=== PATIENT | male | born 1995 | race Caucasian/White ===

== ENCOUNTER 2018-02-24 17:07 | Inpatient (IN) | payer OTHER ==
[2018-02-24 17:30] LABS: PLATELET COUNT 208 10^3/uL (150-400)
--- NOTE | 2018-02-24 17:31 | EDPHY ---
H & P Stated Complaint: M1 SI/HI Time Seen by Provider: 02/24/18 17:09 HPI/ROS: CHIEF COMPLAINT: Suicidal and homicidal ideation HISTORY OF PRESENT ILLNESS: 23-year-old male history of bipolar disorder, off of his medications since 2017, was at his psychiatrist today and was subsequently placed on M1 hold as he was endorsing suicidal ideation and homicidal ideation. Regarding his suicidal ideation his plan is to either lacerate his neck, hang himself or buy a gun and shoot himself. He does not currently own a gun.. Regarding his homicidal ideation, states that this is not directed any specific individual(s) however he has had thoughts of " shooting up a school" with no specific school in mind. Denies hallucination. No complaints of physical pain or discomfort. REVIEW OF SYSTEMS: 10 systems reviewed and negative with the exception of the elements mentioned in the history of present illness PAST MEDICAL & SURGICAL HISTORY: Bipolar disorder SOCIAL HISTORY: Denies acute alcohol or drug use PHYSICAL EXAM (Prior to examination, patient consented to physical exam, hands were washed and my usual and customary physical exam procedures followed) 1) GENERAL: Well-developed, well-nourished, alert and oriented. Rapid. 2) HEAD: Normocephalic, atraumatic 3) HEENT: Pupils equal, round, reactive to light bilaterally. Sclera anicteric. 4) NECK: Full range of motion, no meningeal signs. 5) LUNGS: Clear auscultation bilaterally, no wheezes, no rhonchi, no retractions. 6) HEART: Regular rate and rhythm, no murmur, no heave, no gallop. 7) ABDOMEN: No guarding, no rebound, no focal tenderness, negative McBurney's, negative Gee's, negative Rovsing's, negative peritoneal sign, 8) MUSCULOSKELETAL: Multiple subacute superficial abrasions left dorsal hand left forearm with no signs of infection or underlying pain. Neurovascular intact. Otherwise, Moving all extremities, no focal areas of tenderness, no obvious trauma. No peripheral edema or discoloration. 9) BACK: No CVA tenderness, no midline vertebral tenderness, no fluctuance, no step-off, no obvious trauma, no visual or palpable abnormality. 10) SKIN: No rash, no petechiae. 11) Psychiatric: Patient is oriented X 3, there is no agitation. DIFFERENTIAL DIAGNOSIS: In no particular order including but not limited to suicidal ideation, homicidal ideation, depression, shay - Medical/Surgical History Hx Asthma: No Hx Chronic Respiratory Disease: No Hx Diabetes: No Hx Cardiac Disease: No Hx Renal Disease: No Hx Cirrhosis: No Hx Alcoholism: No Hx HIV/AIDS: No Hx Splenectomy or Spleen Trauma: No Other PMH: Bipolar (off Rx since 02/03/19), aspergers - Social History Smoking Status: Never smoked Constitutional: Initial Vital Signs Temperature (C) 36.7 C 02/24/18 17:20 Heart Rate 110 H 02/24/18 17:20 Respiratory Rate 20 02/24/18 17:20 Blood Pressure 162/108 H 02/24/18 17:20 O2 Sat (%) 96 02/24/18 17:20 O2 Delivery Mode Room Air Allergies/Adverse Reactions: Sulfa (Sulfonamide Antibiotics) Allergy (Verified 05/15/13 22:26) Home Medications: Medication Instructions Recorded Benztropine Mesylate [Cogentin 1 mg PO 05/16/11 (RX)] LORazepam [Ativan 0.5 mg (RX)] 0.5 mg PO 05/16/11 [place] Carbonate [[place] 600 mg PO 05/16/11 Carbonate Tab 300 mg (RX)] PERPHENAZINE [Perphenazine 4mg] 4 mg PO 05/16/11 AZITHROMYCIN [Z-PACK] 250 mg PO DAILY #4 tab 05/15/13 Benzonatate [Tessalon Pearles] 100 mg PO TID PRN #30 cap 05/15/13 Medical Decision Making ED Course/Re-evaluation: 5:29 p.m.: Patient is on an M1 hold. He is actively endorsing suicidal and homicidal ideation. He is agreeable with diagnostic studies. Calm and cooperative at this time. Care of patient under supervision of secondary supervising physician Dr Harley with whom I discussed case. Midnight: Patient accepted for transfer, accepting physician Dr. Retana [address] EMTALA paperwork completed - Data Points Laboratory Results: Laboratory Results 02/24/18 17:21 02/24/18 17:21 02/24/18 02/24/18 02/24/18 17:21 17:21 17:21 WBC RBC Hgb Hct MCV MCH MCHC RDW Plt Count MPV Neut % (Auto) Lymph % (Auto) [place] % (Auto) Eos % (Auto) Baso % (Auto) Nucleat RBC Rel Count Absolute Neuts (auto) Absolute Lymphs (auto) Absolute Monos (auto) Absolute Eos (auto) Absolute Basos (auto) Absolute Nucleated RBC Immature Gran % Immature Gran # Sodium 139 mEq/L mEq/L (135-145) Potassium 4.1 mEq/L mEq/L (3.5-5.2) Chloride 104 mEq/L mEq/L (97-110) Carbon Dioxide 25 mEq/l mEq/l (22-31) Anion Gap 10 mEq/L mEq/L (6-14) BUN 16 mg/dL mg/dL (7-23) Creatinine 0.8 mg/dL mg/dL (0.7-1.3) Estimated GFR > 60 Glucose 120 mg/dL H mg/dL (70-100) Calcium 9.8 mg/dL mg/dL (8.5-10.4) Salicylates < 1.0 mg/dL L mg/dL (2.0-20.0) Urine Opiates Screen NEGATIVE (NEGATIVE) Acetaminophen < 10 mcg/mL L mcg/mL (10-30) Urine Barbiturates NEGATIVE (NEGATIVE) Ur Phencyclidine Scrn NEGATIVE (NEGATIVE) Ur Amphetamine Screen NEGATIVE (NEGATIVE) U Benzodiazepines Scrn NEGATIVE (NEGATIVE) [place] < 0.2 mEq/L L mEq/L (0.6-1.2) Urine Cocaine Screen NEGATIVE (NEGATIVE) U Marijuana (THC) Screen NEGATIVE (NEGATIVE) Ethyl Alcohol < 10 mg/dL mg/dL (0-10) 02/24/18 17:21 WBC 7.48 10^3/uL 10^3/uL (3.80-9.50) RBC 5.31 10^6/uL 10^6/uL (4.40-6.38) Hgb 17.3 g/dL g/dL (13.7-17.5) Hct 48.8 % % (40.0-51.0) MCV 91.9 fL fL (81.5-99.8) MCH 32.6 pg pg (27.9-34.1) MCHC 35.5 g/dL g/dL (32.4-36.7) RDW 12.2 % % (11.5-15.2) Plt Count 208 10^3/uL 10^3/uL (150-400) MPV 11.2 fL fL (8.7-11.7) Neut % (Auto) 62.4 % % (39.3-74.2) Lymph % (Auto) 30.3 % % (15.0-45.0) [place] % (Auto) 5.7 % % (4.5-13.0) Eos % (Auto) 0.9 % % (0.6-7.6) Baso % (Auto) 0.4 % % (0.3-1.7) Nucleat RBC Rel Count 0.0 % % (0.0-0.2) Absolute Neuts (auto) 4.66 10^3/uL 10^3/uL (1.70-6.50) Absolute Lymphs (auto) 2.27 10^3/uL 10^3/uL (1.00-3.00) Absolute Monos (auto) 0.43 10^3/uL 10^3/uL (0.30-0.80) Absolute Eos (auto) 0.07 10^3/uL 10^3/uL (0.03-0.40) Absolute Basos (auto) 0.03 10^3/uL 10^3/uL (0.02-0.10) Absolute Nucleated RBC 0.00 10^3/uL 10^3/uL (0-0.01) Immature Gran % 0.3 % % (0.0-1.1) Immature Gran # 0.02 10^3/uL 10^3/uL (0.00-0.10) Sodium Potassium Chloride Carbon Dioxide Anion Gap BUN Creatinine Estimated GFR Glucose Calcium Salicylates Urine Opiates Screen Acetaminophen Urine Barbiturates Ur Phencyclidine Scrn Ur Amphetamine Screen U Benzodiazepines Scrn [place] Urine Cocaine Screen U Marijuana (THC) Screen Ethyl Alcohol Medications Given: Perphenazine (Trilafon) 4 mg PO EDNOW ONE Stop: 02/25/18 22:01 Last Admin: 02/24/18 22:00 Dose: 4 mg Discontinued Medications Alprazolam (Xanax) 0.5 mg PO EDNOW ONE Stop: 02/25/18 00:00 Last Admin: 02/24/18 22:00 Dose: 0.5 mg Departure - Departure Disposition: [facility] IP Clinical Impression: Homicidal ideation, Suicidal ideation Referrals: NONE *PRIMARY CARE P,. [Primary Care Provider] - As per Instructions
--- NOTE | 2018-02-24 22:20 | ASMTTCLDSP ---
TLC Discharge Disposition Disposition: Answers: Admit Discharge Concerns/Recommendations: Notes: In consultation with [facility] ED physician, Mary Harley MD and on-call psychiatrist, Huong Retana MD, both concurred that pt appears to meet 27-65 criteria requiring psychiatric hospitalization as pt appears to be at risk of harm to self/ gravely disabled due to a mental illness condition. For inpatient Huong Retana MD admission, the following psychiatrist agreed to accept patient for admission to Behavioral [facility] ([facility]): Date Signed: 02/24/2018 10:19 PM Electronically Signed By:Brea Roldan
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
[2018-02-24] MEDS ORDERED: ALPRAZolam 0.25 MG TAB PO ONE (23:59)
[2018-02-25] MEDS ORDERED: ACETAMINOPHEN 325 MG TAB PO PRN (01:56)
[2018-02-25] MEDS ORDERED: LORazepam 0.5 MG TAB PO PRN (01:56)
[2018-02-25] MEDS ORDERED: NICOTINE POLACRILEX 2 MG GUM B PRN (01:56)
[2018-02-25] MEDS ORDERED: MAG HYDROX/AL HYDROX/SIMETH 30 ML UDCUP PO PRN (01:56)
[2018-02-25] MEDS ORDERED: MAGNESIUM HYDROXIDE 30 ML UDCUP PO PRN (01:56)
[2018-02-25] MEDS ORDERED: OLANZapine 5 MG TAB PO PRN (01:57)
[2018-02-25] MEDS ORDERED: PERPHENAZINE 2 MG TAB PO ONE ×2 (09:14→22:00)
[2018-02-25] MEDS ORDERED: LITHIUM CARBONATE ER 300 MG TAB PO ONE (09:20)
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
[2018-02-25] MEDS: PERPHENAZINE 2 MG TAB PO SCH (14:10)
--- NOTE | 2018-02-25 14:57 | BCON ---
DATE OF CONSULTATION: 02/25/2018 REFERRING PHYSICIAN: Huong Retana MD REASON FOR REFERRAL: Medical clearance for inpatient behavioral health stay. HISTORY OF PRESENT ILLNESS: This patient came to the emergency department today on an M1 hold after seeing his psychiatrist and expressing suicidal and homicidal ideation. He was evaluated by the mental health team and admitted for further psychiatric care. He currently is without any acute medical complaints. PAST MEDICAL HISTORY: 1. Autism spectrum disorder. 2. Bipolar disorder. 3. Pilonidal cyst. PAST SURGICAL HISTORY: He has had excision of the pilonidal cyst. MEDICATIONS: Prior to admission: 1. Perphenazine 4 mg p.o. in the morning, 4 mg p.o. at 1400, and 8 mg p.o. at bedtime. 2. [place] 900 mg p.o. daily. 3. Alprazolam 0.5 mg at bedtime and q.6 hours p.r.n. ALLERGIES: He is allergic to sulfa antibiotics. SOCIAL HISTORY: He is disabled due to mental illness. He is living with his parents. He is a nonsmoker, nondrinker. FAMILY HISTORY: Noncontributory. REVIEW OF SYSTEMS: He denies any symptoms of a recurrent pilonidal cyst. He is not in pain. His weight has been stable. He does not get regular exercise other than bowling once a week. He denies cough or dyspnea, chest pain or palpitations, nausea, vomiting, constipation, diarrhea, and otherwise a 10- point review of systems is negative. PHYSICAL EXAM: VITAL SIGNS: Blood pressure is 145/66, heart rate is 68, respiratory rate is 20, oxygen saturation is 92% on room air. Temperature is 36.3 degrees centigrade. His weight is 117.9 kg for a body mass index of 32.5. GENERAL: This is an obese man who appears his chronologic age, dressed in street clothes, cooperative and in no acute distress. HEENT: Extraocular movements are intact. Pupils are equal, round, reactive to light. Mucous membranes are moist. Dentition is in good condition. NECK: Supple. HEART: There is a regular rate and rhythm with no murmurs, rubs, or gallops. LUNGS: Clear to auscultation bilaterally. ABDOMEN: Benign. EXTREMITIES: There is no cyanosis, clubbing, or edema. NEUROLOGIC: He is alert and oriented x3. Cranial nerves 2-12 are grossly intact. There is no focal weakness. Sensation is intact to light touch and gait is within normal limits. LABORATORY STUDIES: CBC was entirely normal. Serum chemistry showed normal renal function and electrolytes. Glucose was elevated at 120 but this may not have been fasting. Hemoglobin A1c was normal at 4.9. Liver function tests were normal. Lipid panel showed elevated triglycerides at 278, elevated cholesterol of 225, elevated LDL cholesterol at 136 and a low HDL cholesterol at 33. TSH was normal at 1.39. Toxicology screen in the serum was negative for salicylates, acetaminophen or ethyl alcohol. [place] level was undetectable. Toxicology screen in the urine was negative for any substances of abuse. ASSESSMENT/RECOMMENDATIONS: 1. Mental health issues pending further evaluation and management per Psychiatry and the mental health team. 2. Obesity. Consider avoiding psychiatric medications which would cause further weight gain, but psychosocial stabilization takes priority at present. Encouraged regular exercise as all he does currently is go bowling once a week. Consider dietary consult. 3. Dyslipidemia. There is no reason to consider a statin at his age. He would benefit from exercise, which could raise his HDL. 4. Elevated blood pressure. He may be developing metabolic syndrome. If blood pressure remains elevated, would be appropriate to initiate an antihypertensive. Elevated blood pressure would also respond well to increased exercise. I see no medical contraindications to this patient's continued stay in the inpatient behavioral health unit or to any psychiatric medications or procedures. Thank you very much for including me in the care of this patient and please do not hesitate to contact me or the hospitalist service should there be need for further medical evaluation. /[id number]/MODL MTDD
--- NOTE | 2018-02-25 17:28 | PDMN ---
Medical Necessity Medical necessity: Pt meets inpt criteria per MD order and [facility] [place] [id number], Schizophrenia Spectrum Disorders, Adult: Inpatient Care, 6 days. 23 y/o admitted w/autism spectrum disorder and schizoaffective disorder, on M1 hold due to risk of harm to self and others, requires inpt psychiatric hospitalization b/c of current acute agitation, decompensation of underlying schizoaffective disorder due to medication nonadherence.
[2018-02-25] MEDS: ALPRAZolam 0.5 MG TAB PO SCH (20:46)
[2018-02-25] MEDS: PERPHENAZINE 8 MG TAB PO SCH (20:46)
[2018-02-25] MEDS ORDERED: ALPRAZolam 1 MG TAB PO SCH (21:00)
[2018-02-25] MEDS ORDERED: PERPHENAZINE 16 MG PO SCH (21:00)
--- NOTE | 2018-02-26 08:40 | SOAPPROG ---
SOAP Progress Note Assessment/Plan: Assessment: Autism Spectrum Disorder, Schizoaffective Disorder. Slight improvement noted. ( see subjective/objective note). Patient could benefit from continued inpatient hospitalization for crisis stabilization, safety, and medication evaluation. Patient could benefit from therapeutic lithium level prior to discharge. [place] level scheduled for 03/02/18. Plan: 1. Psychotropic medications: After reviewing options, risks, and benefits patient agrees to continue current medications. No medication changes at this time as more time is needed to determine ongoing tolerability and efficacy. Plan is to continue to observe patient for response and side effects from medications, and ongoing monitoring and evaluation. 2. Review with patient informed consent and recommendations for psychotropic medication treatment listed below 3. Labs: no additional labs at this time 4. Therapy: continue milieu and group therapy 5. Further investigation including gathering information from patients relatives and review of past case records to inform treatment plan. 6. Safety/Wellness plan and follow-up outpatient appointments to be established prior to discharge. Next steps are for patient to meet with managed care liaison to plan a safe discharge plan and establish outpatient services for ongoing treatment. 7. Confer with inpatient treatment team regarding treatment plan. 8. Psychosocial stressors addressed through career transition specialist. 9. Legal status: M1 10. Consider discharge next week if patient is in stable condition, safe, and has a safe discharge plan. PSYCHOTROPIC MEDICATION TREATMENT INFORMED CONSENT and RECOMMENDATIONS: Review nature of condition, diagnosis, and prognosis. Review nature and purpose of psychotropic medication treatment. Review type of psychotropic medications being ordered. Review risk and benefits of psychotropic medication treatment. Review probable length of time patient will need to take medications. Review risk and benefits of not undergoing psychotropic medication treatment. Review alternative treatments to psychotropic medications. Review psychotropic medications contraindications, drug-drug interactions, side effects, and importance of reporting any side effects to a psychiatric provider or nurse during inpatient hospitalization, and upon discharge to patients psychiatric outpatient provider, primary care provider, or other health day care home provider. Review importance of asking a nurse, psychiatric provider, or primary care provider any questions or problems concerning the psychotropic medications. Verify patient understands the information that has been provided, and understands, accepts, and agrees to psychotropic medications. Review patients safety plan and importance of patient to report to staff while hospitalized if patient is ever a danger to self/others, or unable to care for self, and upon discharge, the importance for patient to contact [facility] or [facility], or go to the nearest emergency room, if patient is ever a danger to self/others, or unable to care for self. Recommend that upon discharge patient establish medication management treatment with a psychiatric provider, establishes routine therapy appointments, and follow-up with primary care provider. Verify patient understands and agrees to these recommendations. 02/26/18 08:39 Subjective: Following up with patient for evaluation of psychosis, shay, and safety. Patient reports, "Doing okay." Patient expresses the following psychiatric symptoms none. Patient reports taking medications as prescribed, and describes response to medications as good. Patient does not report undesirable side effects from the medications, and agrees to continue current medications. Patient describes getting 8 hours of sleep. Patient denies SI/HI, and reports, "No, I am not having any of those thoughts since I have been here. The last time I had those thoughts was on Friday." Objective: Vital Signs Temp Pulse Resp BP Pulse Ox 36.9 C 75 14 108/52 L 95 02/26/18 06:00 02/26/18 06:00 02/26/18 06:00 02/26/18 06:00 02/26/18 06:00 NURSING REPORT: Consulted with nursing for update on patients progress in treatment. Nurses report patient is not engaged in treatment, is not attending groups, slept 8 hours, expresses the following psychiatric symptoms: severe anxiety, exhibits the following psychiatric symptoms: irritable, easily agitated , anxious; is eating all meals, is agreeable to medications and taking as prescribed with no report of side effects, with no s/s of EPS/akathisia, and denies SI/HI, denies A/V hallucinations, and denies delusions. MSE: The patient is a well-nourished male looking stated chronological age. Attire is appropriate and dress is casual. Grooming status is appropriate. Ambulation is independent. Gait is normal and coordinated. Posture is relaxed. Eye contact is appropriate and adequate. Motor activity is appropriate with purposeful, organized, coordinated movements; with no involuntary movements. Attitude is cooperative and friendly. Patient appears attentive and relates fairly well to this interviewer. Language production is spontaneous. R/R/V normal. Articulation is clear. Patient reports mood as okay with congruent and appropriate affect. Patients thought process is linear and logical with no signs of formal thought disorder. Patient does not report suicidal/homicidal thoughts, ideas, or plans. Patient denies auditory, visual hallucinations. Patient denies delusions. Patient does not appear to be attending to internal stimuli. Patients attention and concentration are fair. Patient is oriented to person, place, time. Patients insight and judgment poor. - Time Spent With Patient Time Spent With Patient: 15 minutes, met with patient individually. - Pending Discharge Pending Discharge Within 24 Hours: No Pending Discharge Within 48 Hours: No ICD10 Worksheet Patient Problems: Problems Problem Status Onset Homicidal ideation Acute Suicidal ideation Acute
[2018-02-26] MEDS ORDERED: PERPHENAZINE 8 MG TAB PO SCH (09:00)
[2018-02-26] MEDS: PERPHENAZINE 2 MG TAB PO SCH ×2 (09:16→15:34)
[2018-02-26] MEDS: LITHIUM CARBONATE ER 300 MG TAB PO SCH (09:16)
--- NOTE | 2018-02-26 14:12 | ASMTCMCOM ---
CM Note CM Note Notes: CC spoke to the parents of client with client present. CC tried to explain client's current treatment plan and help answer any questions they had, etc. Client was visibly upset and tearful at times (stressful times in which he perceived as the conversation no going his way or entailing items he did not agree with or like). CC was able to provide active listening and brief crisis intervention serves in order to calm client down, etc. CC also, provided parents with client's providers phone number after confirming with provider that was ok, etc. Provided all necessary CC contact information to family, etc. Date Signed: 02/26/2018 02:11 PM Electronically Signed By:Zac Armijo
[2018-02-26] MEDS: ALPRAZolam 0.5 MG TAB PO SCH (21:25)
[2018-02-26] MEDS: PERPHENAZINE 8 MG TAB PO SCH (21:25)
[2018-02-27] MEDS: PERPHENAZINE 2 MG TAB PO SCH ×2 (09:26→14:21)
[2018-02-27] MEDS: LITHIUM CARBONATE ER 300 MG TAB PO SCH (09:26)
--- NOTE | 2018-02-27 11:43 | SOAPPROG ---
SOAP Progress Note Assessment/Plan: Assessment: Autism Spectrum Disorder, Schizoaffective Disorder. No improvement noted; decreased sleep, irritable, agitated (see subjective/objective note). Patient could benefit from continued inpatient hospitalization for crisis stabilization , safety, and medication evaluation. Patient could benefit from therapeutic lithium level prior to discharge. [place] level scheduled for 02/28/18. Plan: 1. Psychotropic medications: After reviewing options, risks, and benefits patient agrees to continue current medications. No medication changes at this time as more time is needed to determine ongoing tolerability and efficacy. Plan is to continue to observe patient for response and side effects from medications, and ongoing monitoring and evaluation. 2. Review with patient informed consent and recommendations for psychotropic medication treatment listed below 3. Labs: lithium level 02/28/17 4. Therapy: continue milieu and group therapy 5. Further investigation including gathering information from patients relatives and review of past case records to inform treatment plan. 6. Safety/Wellness plan and follow-up outpatient appointments to be established prior to discharge. Next steps are for patient to meet with care transition mgr to plan a safe discharge plan and establish outpatient services for ongoing treatment. 7. Confer with inpatient treatment team regarding treatment plan. 8. Psychosocial stressors addressed through child care director. 9. Legal status: voluntary 10. Consider discharge next week if patient is in stable condition, safe, and has a safe discharge plan. PSYCHOTROPIC MEDICATION TREATMENT INFORMED CONSENT and RECOMMENDATIONS: Review nature of condition, diagnosis, and prognosis. Review nature and purpose of psychotropic medication treatment. Review type of psychotropic medications being ordered. Review risk and benefits of psychotropic medication treatment. Review probable length of time patient will need to take medications. Review risk and benefits of not undergoing psychotropic medication treatment. Review alternative treatments to psychotropic medications. Review psychotropic medications contraindications, drug-drug interactions, side effects, and importance of reporting any side effects to a psychiatric provider or nurse during inpatient hospitalization, and upon discharge to patients psychiatric outpatient provider, primary care provider, or other health morning caregiver. Review importance of asking a nurse, psychiatric provider, or primary care provider any questions or problems concerning the psychotropic medications. Verify patient understands the information that has been provided, and understands, accepts, and agrees to psychotropic medications. Review patients safety plan and importance of patient to report to staff while hospitalized if patient is ever a danger to self/others, or unable to care for self, and upon discharge, the importance for patient to contact [facility] or 911, or go to the nearest emergency room, if patient is ever a danger to self/others, or unable to care for self. Recommend that upon discharge patient establish medication management treatment with a psychiatric provider, establishes routine therapy appointments, and follow-up with primary care provider. Verify patient understands and agrees to these recommendations. 02/27/18 11:41 Subjective: Following up with patient for evaluation of psychosis, shay, and safety. Patient screams, "It is complete torture being here, I really don't want to be here." Patient expresses the following psychiatric symptoms severe anxiety. Patient reports taking medications as prescribed, and describes response to medications as good. Patient does not report undesirable side effects from the medications, and agrees to continue current medications. Patient describes getting no sleep last night. Patient denies SI/HI. Objective: Vital Signs Temp Pulse Resp BP Pulse Ox 36 C 65 14 109/55 L 94 02/27/18 06:00 02/27/18 06:00 02/27/18 06:00 02/27/18 06:00 02/27/18 06:00 NURSING REPORT: Consulted with nursing for update on patients progress in treatment. Nurses report patient is not engaged in treatment, is not attending groups, slept 4 hours, expresses the following psychiatric symptoms: severe anxiety, exhibits the following psychiatric symptoms: irritable, easily agitated , anxious; is eating all meals, is agreeable to medications and taking as prescribed with no report of side effects, with no s/s of EPS/akathisia, and denies SI/HI, denies A/V hallucinations, and denies delusions. FAMILY MEETING: This SYSTEM OPERATOR met with patient, treatment team, and patients parents to review treatment plan and goals for hospitalization. MSE: The patient is a well-nourished male looking stated chronological age. Attire is appropriate and dress is casual. Grooming status is appropriate. Ambulation is independent. Gait is normal and coordinated. Posture is relaxed. Eye contact is appropriate and adequate. Motor activity is appropriate with purposeful, organized, coordinated movements; with no involuntary movements. Attitude is uncooperative and angry. Patient appears distractible and does not relate well to this interviewer. Language production is spontaneous. Rate is pressured, latency of response is shortened, with irritable and angry tone. Articulation is clear. Patient reports mood as okay with incongruent and inappropriate affect. Patients thought process is non- linear and illogical, tangential. Patient does not report suicidal/homicidal thoughts, ideas, or plans. Patient denies auditory, visual hallucinations. Patient denies delusions. Patient does not appear to be attending to internal stimuli. Patients attention and concentration are fair. Patient is oriented to person, place, time. Patients insight and judgment poor. - Time Spent With Patient Time Spent With Patient: 30 minutes, met with patient individually, met with patient and patient's parents with child care director for family meeting, and met with patient, patient' s parents and treatment team. - Pending Discharge Pending Discharge Within 24 Hours: No Pending Discharge Within 48 Hours: No ICD10 Worksheet Patient Problems: Problems Problem Status Onset Homicidal ideation Acute Suicidal ideation Acute
--- NOTE | 2018-02-27 12:27 | ASMTBHFAM ---
Notes Note: Notes: The patient participated in clinical treatment team rounds. He presented as anxious although regulated and appropriate. The patient was adamant that he could maintain safety at home. His parents expressed concerns regarding the changes in medication and long term care phlebotomist stability. The client agreed to stay on a voluntary basis through the weekend. He agreed to the following rules upon discharge: no contact with the cat, engage in exercise, and communicate/express one positive affirmation about himself per day. The patient stated, that he is confident he will be safe and that he is no longer having intrusive thoughts about people or animals. He doesn't currently feel preoccupied with others, he acknowledge that he may "care too much about people" that it causes him "stress." He reported that he is not wanting to "punish" himself for negative past behavior which he measures as an improvement in his MH. He acknowledged is negative self perception. He feels that he is "mentally better," although he is having difficulty getting sleep. The patient also raised concerns that the inpatient environment could be triggering due to the varying presentations of patients in the milieu. He expressed gratitude to his family and the treatment team for their support. Date Signed: 02/27/2018 12:27 PM Electronically Signed By:Faith Garcia
[2018-02-27] MEDS: PERPHENAZINE 8 MG TAB PO SCH (19:16)
[2018-02-27] MEDS: ALPRAZolam 0.5 MG TAB PO SCH (19:16)
[2018-02-27] MEDS: ALPRAZolam 0.5 MG TAB PO PRN (23:49)
[2018-02-28] MEDS: LITHIUM CARBONATE ER 300 MG TAB PO SCH (09:29)
[2018-02-28] MEDS: PERPHENAZINE 2 MG TAB PO SCH ×2 (09:29→14:23)
--- NOTE | 2018-02-28 14:11 | ASMTCMCOM ---
CM Note CM Note Notes: Pt reports feeling "actually pretty good". Pt. stated he slept "little better". Pt. stated he is having no suicidal thoughts or suicidal intentions. Pt. reports no issues with his current medications, but stated he is worried about the MD increasing his lithium too much to where the pt. needs to use the bathroom throughout the night. Pt. reports eating well and attending groups. Pt. denied SI, HI, and AVH. Pt. reports "little bit of paranoia" adding he is worried about possible legal charges about the things he was stating prior to admission. Pt. presents as alert, pressured, rapid speech, some eye contact, unkempt, and cooperative. Staff report pt. sleeping 7.5 hours and being medication compliant. Date Signed: 02/28/2018 02:10 PM Electronically Signed By:Eneida Fuentes
--- NOTE | 2018-02-28 15:24 | SOAPPROG ---
SOAP Progress Note Assessment/Plan: Assessment: Per Benny Lal's notes: Autism Spectrum Disorder, Schizoaffective Disorder. No improvement noted; decreased sleep, irritable, agitated (see subjective/objective note). Patient could benefit from continued inpatient hospitalization for crisis stabilization , safety, and medication evaluation. Patient could benefit from therapeutic lithium level prior to discharge. [place] level scheduled for 02/28/18. WEEKEND COVERAGE Plan: 02/28/18 15:20 1. Patient feels "pretty good." Denies any SI/HI. 2. POC report patient sees much better, but they feel he is benefitting from extra couple of days in hospital. 3. [place] level was 0.5 today. 4. Patient very concerned about increasing [place] any higher because he can't sleep at night d/t frequent urination on higher doses. MD does not believe it's necessary to increase dose as long as patient's symptoms are sufficiently improved on current dose. 5. POC agree patient is at baseline and feel comfortable with patient returning home on Friday as long as patient is stable over w/e. Subjective: Patient doesn't want MD to increase lithium dose any more b/c he is worried about not sleeping d/t frequent urination he had on higher dose. Patient says he feels "pretty good" and denies any thoughts, plan or intent to hurt himself or anyone else. Patient regrets statements he made about wanting to shoot up a school prior to his admission. He knows this was "wrong" thing to say and hopes he doesn't get into trouble with police. He says he "didn't mean it" and has no thoughts now about hurting anyone else and says he would "never" do it. Family says they are concerned about patient's labile mood, but think he is currently at his baseline. MD explained the risks and potential adverse effects from taking Perphenazine, lithium and xanax. MD explained that because Perphenazine is a typical neuroleptic, there is higher risk of EPS and TD. MD also warned that xanax can cause dependency d/t possibility of developing tolerance and withdrawal. Patient and family have been advised of these risks before, but MD felt it was important to emphasize the critical importance of continually weighing the potential benefits of psychotropic medications against the very real and sometimes dangerous risks. MD also emphasized that patient and family should always consider alternative treatments that have lower risks, such as behavior modification therapy (which is the gold standard for patient's with ASD & PDD), CBT, MBSR, mindfulness based CBT, de-sensitization therapy, biofeedback and other kinds of therapy that can help alleviate anxiety, reduce stress and increase coping skills. Objective: Vital Signs Temp Pulse Resp BP Pulse Ox 36.8 C 66 12 119/66 98 02/28/18 06:00 02/28/18 06:00 02/28/18 06:00 02/28/18 06:00 02/28/18 06:00 MSE: Affect: Euthymic Mood: "OK" TP: Goal-directed, perseverative at times, ruminative TC: Denies SI/HI Insight/Judgment: Poor - Time Spent With Patient Time Spent With Patient: 15" - Pending Discharge Pending Discharge Within 24 Hours: No Pending Discharge Within 48 Hours: No ICD10 Worksheet Patient Problems: Problems Problem Status Onset Homicidal ideation Acute Suicidal ideation Acute
[2018-02-28] MEDS: ALPRAZolam 0.5 MG TAB PO SCH (20:08)
[2018-02-28] MEDS: PERPHENAZINE 8 MG TAB PO SCH (20:08)
[2018-02-28] MEDS: ALPRAZolam 0.5 MG TAB PO PRN (22:32)
[2018-03-01] MEDS: LITHIUM CARBONATE ER 300 MG TAB PO SCH (08:56)
[2018-03-01] MEDS: PERPHENAZINE 2 MG TAB PO SCH ×2 (08:57→13:57)
--- NOTE | 2018-03-01 14:55 | ASMTCMCOM ---
CM Note CM Note Notes: Pt. stated he is feeling "okay". Pt. stated he is "wondering result of blood draw". Pt. stated he is having "no negative side effects" from his medications. Pt. stated he is "still not getting the sleep I need", adding he "woke up way too early" and doesn't feel fully rested. Pt. stated he is eating well and attending groups. Pt. asked about his discharge date. Pt. stated "mom might need some time to recover". Pt. stated he is "feeling like I'm better". Pt. denied SI, HI, AVH and paranoia. Pt. discussed a potential new relationship pt is having with a transgender friend. CC encouraged pt to discuss this with his parents and outpatient counselor. Pt. presents as alert, pressured speech, appearing to have showered, good eye contact, bit distracted by possible relationship, and cooperative. Staff report pt. sleeping 7 hours and being medication compliant. Date Signed: 03/01/2018 02:55 PM Electronically Signed By:Eneida Fuentes
--- NOTE | 2018-03-01 16:46 | SOAPPROG ---
SOAP Progress Note Assessment/Plan: Assessment: Per Benny Lal's notes: Autism Spectrum Disorder, Schizoaffective Disorder. No improvement noted; decreased sleep, irritable, agitated (see subjective/objective note). Patient could benefit from continued inpatient hospitalization for crisis stabilization , safety, and medication evaluation. Patient could benefit from therapeutic lithium level prior to discharge. [place] level scheduled for 02/28/18. WEEKEND COVERAGE Plan: 02/28/18 15:20 1. Patient feels "pretty good." Denies any SI/HI. 2. POC report patient sees much better, but they feel he is benefitting from extra couple of days in hospital. 3. [place] level was 0.5 today. 4. Patient very concerned about increasing [place] any higher because he can't sleep at night d/t frequent urination on higher doses. MD does not believe it's necessary to increase dose as long as patient's symptoms are sufficiently improved on current dose. 5. POC agree patient is at baseline and feel comfortable with patient returning home on Friday as long as patient is stable over w/e. PLAN: 03/01/18 16:42 1. Reports he feels "the best" he has in long time. Doesn't ant any further adjustments to his lithium. 2. MD told patient his treatment team will likely want to talk to his parents before he goes home and come up with a plan for aftercare. Patient says he would agree to family meeting prior to d/c. 3. Patient has medical data analyst coming to see him at home this week to start working on behavior modification therapy. 4. Patient wants to go home on Friday and f/u with Dr. Mahan, his OP provider. 5. Voluntary Subjective: Patient eager to talk to MD about discharge. He says he's "ready" to leave hospital. He says, "I haven't felt this good since Summer." He wants to convince MD he doesn't need higher dose of [place]. MD explained his level is low, but that main factor are his symptoms. Patient denies feeling sad, helpless , hopeless, anxious, or psychotic. He denies any elevated/elated mood, delusions , impulsiveness, anger, irritability. There is no evidence of pressured speech, racing thoughts, increased activity or decreased sleep. He denies any AH/VH. Objective: Vital Signs Temp Pulse Resp BP Pulse Ox 36.6 C 70 14 103/67 80 L 03/01/18 06:00 03/01/18 06:00 03/01/18 06:00 03/01/18 06:00 03/01/18 06:00 MSE: Affect: Euthymic, calm Mood: "Great" TP: Linear TC: Denies any SI/HI Insight/Judgment: Fair - Time Spent With Patient Time Spent With Patient: 15" - Pending Discharge Pending Discharge Within 24 Hours: Yes Pending Discharge Within 48 Hours: No Pending Discharge Date: 03/02/18 (Likely d/c on Friday) Pending Discharge Time: 11:00 ICD10 Worksheet Patient Problems: Problems Problem Status Onset Homicidal ideation Acute Suicidal ideation Acute
[2018-03-01] MEDS: PERPHENAZINE 8 MG TAB PO SCH (20:58)
[2018-03-01] MEDS: ALPRAZolam 0.5 MG TAB PO SCH (20:58)
[2018-03-01] MEDS: ALPRAZolam 0.5 MG TAB PO PRN (23:36)
[2018-03-02 06:49] VITALS: BP 117/58
[2018-03-02] MEDS: LITHIUM CARBONATE ER 300 MG TAB PO SCH (09:27)
[2018-03-02] MEDS: PERPHENAZINE 2 MG TAB PO SCH (09:28)
--- NOTE | 2018-03-02 11:35 | BDS ---
REASON FOR ADMISSION: From the ED note dated 02/24/2018, patient with a history of bipolar disorder, has been off his medications since 2017. Patient was placed on an M1 hold by outpatient psychiatric provider for endorsing suicidal and homicidal ideation. Patient was admitted involuntarily on an M1 hold due to being a danger to himself and others. Patient was admitted for safety, crisis stabilization, and medication evaluation. ADMITTING DIAGNOSES: 1. Autism spectrum disorder. 2. Schizoaffective disorder. 3. Nonadherence to medical treatment. ADMISSION PHYSICAL EXAM: Patient was seen for Internal Medicine consultation on 02/25/2018, for medical clearance for inpatient psychiatric hospitalization and treatment. Patient was medically cleared for inpatient psychiatric hospitalization and treatment. For further details, please refer to consultation note dated 02/25/2018. ADMISSION LABORATORY: 1. CBC within normal limits. 2. BMP within normal limits, except glucose is elevated at 120. 3. Hemoglobin A1c within normal limits at 4.9. 4. Liver function within normal limits. 5. Lipid panel: Triglycerides elevated at 278, cholesterol elevated at 225, cholesterol risk factor elevated at 1.6, LDL cholesterol calculated elevated at 136, LDL risk factor elevated at 1.2, VLDL cholesterol elevated at 56, non-HDL cholesterol elevated at 192, HDL cholesterol low at 33, LDL/HDL ratio elevated at 4.13, cholesterol/HDL ratio elevated at 6.82. 6. TSH within normal limits at 1.390. 7. Toxicology screen negative for all substances screen and negative for ethyl alcohol. 8. [place] level on 02/28/2018, at current dose of lithium ER 900 mg p.o. daily , 0.5. MAJOR PROCEDURES OR TESTS: None. HOSPITAL COURSE: The most prominent symptoms and behaviors while the patient was here were severe agitation, irritability, and withdrawn from social interactions. Patient reported a decreased need for sleep. Treatment modalities utilized were milieu and group therapy. Patient's outpatient medications were continued: Perphenazine 4 mg p.o. daily and 4 mg p.o. 1400 , and 8 mg p.o. q.h.s. were continued to target mood and psychosis symptoms, were tolerated with no report of side effects, and with good response. Xanax 0.5 mg p.o. q.6 hours p.r.n. was started to target acute agitation, was tolerated with no report of side effects, and with good response. Xanax 0.5 mg p.o. q.h.s. was continued to target acute agitation and insomnia symptoms, was tolerated with no report of side effects, and with good response. [place] ER 900 mg p.o. q.h.s. was continued to target mood symptoms, was tolerated with no report of side effects, and with good response. Patient has improved considerably with no signs of psychiatric symptoms and no psychiatric symptoms expressed at time of discharge. Patient reports he has improved since admission, states to be in stable condition, feels safe to discharge, and he contracts for safety. Patient 's response to treatment was good. There were no adverse or unexpected results of treatment. The patient was safe throughout his stay, active in treatment, engaged in groups, and was appropriate with staff and other patients. Patient met with the treatment team prior to discharge to assess readiness to discharge and review discharge plan. The treatment team consensus is the patient is in stable condition, has a safe discharge plan, and is ready to discharge today. CONDITION AT DISCHARGE: Patient is in stable condition and is no longer a danger to self or others, and is not gravely disabled due to mental illness. Patient is no longer in need of inpatient level of care, and can be safely and effectively treated within the community. The patients level of risk at time of discharge is low. MSE: The patient is casually dressed and with good hygiene , and looks stated age. Patient is sitting, posture is upright, and position is relaxed. Patient appears awake, alert, and responds appropriately and reasonably during interview. Patient is engaged, relates well to interviewer, and emotional facial expression is appropriate to situation and changes appropriately with topic. Patient is cooperative, makes comfortable eye contact , and movements are voluntary, deliberate, coordinated, and smooth and even with no inappropriate movements. Patient makes laryngeal sounds effortlessly and shares conversation appropriately; pace of conversation is appropriate, and stream of talking is fluent; articulation is clear and understandable; word choice is effortless and appropriate for education level; completes sentences, occasionally pausing to think; rate and volume are appropriate for interview and setting. Patient reports mood as euthymic. Patients affect is stable with full variable range, congruent with mood, and appropriate to speech and circumstances. Patient has linear and logical thinking, with no loose associations, tangential thought, thought blocking, concrete thinking, or any other signs of formal thought disorder. Patient denies suicidal and homicidal ideation, and denies hallucinations and delusions. Patient appears to be a reliable historian with sound judgement and good insight into current condition. Patient has no apparent dysfunction in recent or remote memory noted , and no evidence of gross cognitive dysfunction noted at any point during the interview. DISCHARGE DIAGNOSES: 1. Autism spectrum disorder. 2. Schizoaffective disorder. CURRENT MEDICATIONS: After reviewing options, risks, and benefits with the patient, patient agrees to continue: 1. Perphenazine 4 mg p.o. daily, and 4 mg p.o. daily at 2:00 p.m. and 8 mg p.o. q.h.s. 2. Xanax XR 0.5 mg p.o. t.i.d. 3. [place] ER 900 mg p.o. q.h.s. 4. Xanax XR 0.5 mg p.o. q.h.s. DISPOSITION: Patient left the hospital independently and voluntarily today with his father after a family meeting with his father and this THREAD MARKER. Patient plans to return home and live with his mother and father. FOLLOWUP: music coordinator reports the appropriate outpatient follow-up services have been established and outpatient appointments have been scheduled. The patient received written instructions with times and dates of outpatient follow-up appointments. The following follow-up recommendations were provided to the patient at discharge: Continue psychotropic medications as prescribed and attend appointments as scheduled. Report any side effects to a psychiatric outpatient provider, a primary care provider, or other health child care center administrator. Address any questions or problems concerning the psychotropic medications with a psychiatric outpatient provider, a primary care provider, or other health child care center administrator. Contact [facility] or [facility], or go to the nearest emergency room, if you are ever a danger to yourself/others, or unable to care for yourself. As soon as possible, establish a routine medication management treatment with a psychiatric provider, establish routine therapy appointments, and follow-up with a primary care provider. LEGAL COURSE: Patient was admitted on an M1 hold for involuntary inpatient psychiatric hospitalization. Patient became voluntary during his stay. Patient discharged today independently and voluntarily. ATTITUDE AT TIME OF DISCHARGE: The patients attitude was positive at time of discharge, and patient reports looking forward to discharging today. The patient reports he feels safe to discharge, is no longer a danger to himself or others, is in stable condition, and contracts for safety. Patient states he will continue medications as prescribed, and establish medication management treatment with an outpatient provider after discharge. Patient reports he understands the information that has been provided to him, and he understands, accepts, and agrees to psychotropic medications. Patient describes internal protective factors as the coping skills he has learned while hospitalized here, and he plans to continue to practice these coping skills after discharge. LABORATORY/STUDIES: There were no pending labs or studies at time. ADVANCE DIRECTIVES: There were no advance directives on file, and patient was full code during this hospitalization. The following psychotropic medication treatment informed consent and recommendations were provided to the patient at time of discharge. Patient reports he understands, accepts, and agrees to the information that has been provided. PSYCHOTROPIC MEDICATION TREATMENT INFORMED CONSENT and RECOMMENDATIONS: Review nature of condition, diagnosis, and prognosis. Review nature and purpose of psychotropic medication treatment. Review type of psychotropic medications being prescribed. Review risk and benefits of psychotropic medication treatment. Review probable length of time will need to take medications. Review risk and benefits of not undergoing psychotropic medication treatment. Review alternative treatments to psychotropic medications. Review psychotropic medications contraindications, side effects, and importance of reporting any side effects to a psychiatric provider, primary care provider, or other health child care center administrator. Review importance of asking a psychiatric provider or primary care provider any questions or problems concerning the psychotropic medications. Review safety plan and the importance to contact [facility] or [facility] , or go to the nearest emergency room, if ever a danger to yourself/others, or unable to care for yourself. Recommend upon discharge to establish routine medication management treatment with a psychiatric provider, establish routine therapy appointments, and follow-up with a primary care provider. Verify patient understands, accepts, and agrees to the information that has been provided. /[id number]
== END 2018-03-02 11:30 | DRG 885 ==
LOC: BBEH 02-25 00:50
PROVIDERS: ADMIT Psychiatry & Neurology Behavioral Neurology & Neuropsychiatry; ATTEND Psychiatry & Neurology Behavioral Neurology & Neuropsychiatry
DX: F25.9 Schizoaffective disorder, unspecified (principal); F84.0 Autistic disorder
CPT/HCPCS: 80305; G0480